=== PATIENT | female | born 1985 | race African-American/Black ===

== ENCOUNTER → 2019-11-27 10:58 | Outpatient (CLI) | payer OTHER, SELFPAY ==
--- NOTE | ~2019-11-27 | US_ITS ---
EXAMINATION: US right upper quadrant EXAM DATE: 11/27/2019 11:20 INDICATION: Abdominal pain, generalized, vomiting, diarrhea. TECHNIQUE: Multiple grayscale and Doppler images of the abdomen right upper quadrant were obtained (b y a technologist who performed the scan) and subsequently reviewed. There is no prior study for shyam muniz. FINDINGS: The pancreatic head and body are normal in appearance. The pancreatic tail is not visualized. The l iver has normal echogenicity and contour. There are no focal liver lesions identified. There is no evidence of intrahepatic biliary duct dilation. Portal venous flow was seen in the hepatopedal, nor mal direction and has normal Doppler waveform. No right-sided hydronephrosis. Common bile duct measures 4 mm, which is normal. The gallbladder wall is normal in thickness, with ex pected amount of distention. No sonographic evidence of pericholecystic fluid. There is no cholelit hiases. Technologist performing exam reports patient did not demonstrate sonographic Dietz's sign. Please note that this sign is less reliable in patients who have received pain medication. IMPRESSION: 1. Unremarkable abdominal ultrasound exam. Reviewed, dictated and finalized at location B. 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
== END ==
PROVIDERS: PCP Physician Assistant; Visit Provider Physician Assistant
DX: R10.84 Generalized abdominal pain (principal)
CPT/HCPCS: 76705

== ENCOUNTER 2022-03-31 13:34 | Outpatient (CLI) | payer OTHER, SELFPAY ==
[2022-03-31 13:55] LABS: Basophils Percent Auto 0.2 % (0.2-1.2); Eosinophils Absolute Auto 0.3 K/mm3 (0-0.3); Hematocrit 41.1 % (37.0-47.0); Immature Granulocyte Absolute 0.04 K/mm3 (0.00-0.031); Immature Granulocyte Percent A 0.3 % (0-0.5); Immature Platelet Fraction Pct 7.5 % (0.9-11.2); Lymphocytes Absolute Auto 4.09 K/mm3 (0.9-3.2); Lymphocytes Percent Auto 32.3 % (18.3-44.2); Mean Corpuscular HGB Conc 31.6 g/dl (32-36); Mean Corpuscular Hemoglobin 26.6 pg (26-34); Mean Corpuscular Volume 84.2 fl (80-100); Mean Platelet Volume 13.4 fl (7.4-10.4); Monocytes Absolute Auto 0.7 K/mm3 (0.1-0.6); Monocytes Percent Auto 5.1 % (2.6-8.5); Neutrophils Absolute Auto 7.6 K/mm3 (1.3-6.7); Neutrophils Percent Auto 60.1 % (45.5-73.1); Platelet Count Result 277 k/mm3 (150-375); Red Blood Count 4.88 M/mm3 (4.2-5.4); Red Cell Distribution Width 13.6 % (11.5-14.5); White Blood Count 12.7 K/mm3 (4.5-10.0)
== END 2022-03-31 13:35 | disposition home or self-care (01) ==
LOC: ANHLAB 13:37
PROVIDERS: PCP Physician Assistant; Visit Provider Obstetrics & Gynecology
DX: Z01.818 Encounter for other preprocedural examination (principal); N92.6 Irregular menstruation, unspecified
CPT/HCPCS: 36415; 85025; 85055; 86850; 86900; 86901

== ENCOUNTER 2022-04-07 00:20 | Day surgery (SDC) | payer OTHER, SELFPAY ==
[2022-03-30 16:35] VITALS: BMI 39.7
--- NOTE | 2022-03-31 12:25 | PC.NURSE ---
Report to the Outpatient Waiting Room, entrance under the green pavilion located off [facility], at time 0730 on date 04/07/22. OR Time: 0930_. - You and your visitor will be asked a series of questions to screen for COVID 19 for your protection. - Only one visitor is allowed at this time. - The patient visitor is requested to leave or wait in car when not with patient. - A mask is required within the hospital. Patients may have clear liquids (water, carbonated beverages, clear teas, apple juice) until 3 hours prior to surgery with a maximum of 20 ounces. - No food from midnight until time of surgery - Infants may have breast milk until 4 hours before surgery, formula 6 hours prior to surgery. - Children will be allowed to drink immediately following surgery. If applicable, please bring a bottle or sippy cup to assist with drinking. Juice, water, soda, and popsicles are readily available. For infants on formula, please bring formula the day of surgery. Pacifiers are allowed. Take the following medications with a SIP of water the morning of surgery: clonazepam Medications to discontinue per physician Date to take last dose Please no make-up, nail palauan, hairspray, perfume, deodorant, or body powder the day of surgery. No jewelry (including any body piercings) or valuables the day of surgery, leave them at home. Please take a shower or bath the night before, or the morning of, surgery with an antibacterial soap. Wear comfortable, loose fitting clothing. Children are encouraged to wear pajamas. - Jewelry must be removed prior to entering the operating room. Rings and piercings that are not removed may be cut off. - The hospital will not accept responsibility for valuables. - Please leave all valuables, including medications, at home the day of surgery. If you are going home after surgery, a licensed inventory associate and driver must drive you home. - NO public transportation without another adult. - We recommend that an adult stay with you for 24 hours following discharge. - We also recommend that you do not drive, make important decision, drink alcoholic beverages, or take any drugs that were not prescribed by your health care provider for at least 24 hours after your discharge time. For Pediatric surgeries, we recommend two adults accompany the child home (only one inside the building at this time). Follow any additional instructions given to you from your surgeon. If you or anyone in your household have experienced Covid symptoms in the past week, please notify your surgeon or the nurse liaison at the phone number below for possible testing. Telephone instructions given to Liudmila Ceja and asked if any additional questions and then verbalized understanding. Patient advised to call surgeon office or pre surgery nurse liaison [phone] if any additional questions.
--- NOTE | 2022-04-05 07:52 | PM.IMHP ---
H&P: HPI History of Present Illness Date/Time: 04/05/22 07:52 Chief Complaint: Pelvic pain and vaginal bleeding with uterine fibroids on imaging Narrative: This is a 36-year-old female with severe pelvic pain she had an ultrasound which showed multiple uterine fibroids. She complains of pain discomfort and bleeding that is is for definitive therapy. She understands this null over to have children. She received the [employer] handout entitled hysterectomy as well as the de Gali handout. She had all questions answered and asked to proceed PMFSH Social History Social History Smoking packs per day: 0.75 Smoking cigarettes per day: 15.0 Years smoked: 15 Smoking pack-years: 11.25 Smoking status: Current every day smoker Tobacco type: cigarettes Alcohol intake: never Substance use: never Spiritual care concerns: No Meds Home Medications and Allergies Home Medications Medication Instructions Recorded Confirmed Type clonazepam 1 mg tablet 1 mg PO DAILY 03/30/22 03/30/22 History lurasidone 80 mg tablet (Latuda) 80 mg PO HS 03/30/22 03/30/22 History sertraline 100 mg tablet 100 tablet PO HS 03/30/22 03/30/22 History Allergies Allergy/AdvReac Type Severity Reaction Status Date / Time Dog Dander Allergy Unknown Sneezing Uncoded 03/30/22 16:31 Grass Allergy Unknown Sneezing Uncoded 03/30/22 16:31 Exam : External Female Exam: normal external appearance Speculum Exam - Vagina: normal appearance of the vagina Speculum Exam - Cervix: normal appearance of the cervix and Cervical os closed Bimanual exam- vagina & uterus: enlarged and Uterine tenderness Bimanual Exam- Adnexa, other: normal adnexae Assessment and Plan Assessment and plan (1) Enlarged uterus: Code(s): N85.2 - Hypertrophy of uterus Status: Acute (2) Pelvic pain: Code(s): R10.2 - Pelvic and perineal pain Status: Acute (3) Uterine fibroid: Code(s): D25.9 - Leiomyoma of uterus, unspecified Status: Acute Plan Robotic total vaginal hysterectomy and bilateral salpingectomy
--- NOTE | 2022-04-06 12:24 | WPDANESEPPF ---
Anes - Initial Pre Proc Eval Procedure: Operation Date: 04/07/22 09:30 Proposed Procedures p Robotic Assisted Total Vaginal Hysterectomy with Bilateral Salpingectomy - Madhu Muñoz MD Date/Time: 04/06/22 12:24 Surgeon: Madhu Muñoz MD Pre Op Diagnosis: pelvic pain, enlarged uterus, firboid, irreg bleed Patient Data Age: 36 Gender: F Height: 1.63 m Weight: 105 kg Allergies Allergy/AdvReac Type Severity Reaction Status Date / Time No Known Allergies Allergy Verified 04/07/22 08:23 Home Medications Medication Instructions Recorded Confirmed Type clonazepam 1 mg tablet 1 mg PO DAILY 03/30/22 04/07/22 History lurasidone 80 mg tablet (Latuda) 80 mg PO HS 03/30/22 04/07/22 History sertraline 100 mg tablet 100 tablet PO HS 03/30/22 04/07/22 History hydrocodone 5 mg-acetaminophen 325 1 tablet PO Q4H PRN pain #30 tabs 04/07/22 Rx mg tablet Patient hx anesthesia problems: none Family hx anesthesia problems: none Results Review: All pre-operative results and documents have been reviewed as part of the pre-operative evaluation. [facility] Past Medical History Medical History (Updated 04/07/22 @ 07:16 by Madhu Muñoz MD) Enlarged uterus Obesity Pelvic pain Uterine fibroid Social History Social History Smoking packs per day: 0.75 Smoking cigarettes per day: 15.0 Years smoked: 15 Smoking pack-years: 11.25 Smoking status: Current every day smoker Tobacco type: cigarettes Alcohol intake: never Substance use: never Living arrangements: with friend(s) Spiritual care concerns: No Anes - Eval Final PreProcedure Day of Procedure 04/06/22 12:24 Patient weight: obese Heart: regular rate and rhythm Lungs: clear to auscultation and normal air movement Airway: Mallampati scale class II Neurological: alert and oriented Last oral intake: >/= 8 hours ASA classification: III Emergent: no Anesthetic plan: proceed Anesthesia type and monitoring: general ETT Results Review: All pre-operative results and documents have been reviewed as part of the pre-operative evaluation. Informed Consent: The patient's anesthetic plan and its attendant risks and benefits were discussed with the patient/family/POA. Questions were solicited and answers provided to the satisfaction of the patient/family/POA.
[2022-04-07] VITALS (10 sets, daily range): BP systolic 105–126; BP diastolic 55–98; PULSE 57–87; RESP 12–20; TEMP 36.1–36.8; O2SAT 97–100
--- NOTE | 2022-04-07 07:15 | WPDHPUPDATE1 ---
History and Physical Update Update Date/Time: 04/07/22 07:15 History and Physical has been reviewed, including an updated exam of the patient. There are NO changes in the patient's condition. Risks, benefits, and alternatives have been discussed and questions answered. Patient agrees to proceed with procedure.
[2022-04-07] MEDS: ACETAMINOPHEN 500 MG TABLET 1000 MG PO (07:38)
[2022-04-07] MEDS: LACTATED RINGERS 1,000 ML 30 ML IV CONT ×2 (08:18→10:05)
[2022-04-07] MEDS: KETOROLAC 15 MG/ML VIAL (*BKC) IV PUSH (08:19)
[2022-04-07] MEDS: ceFAZolin 2 GM/D5W 50 ML 2 GM/50 ML BAG IVPB (08:58)
--- NOTE | 2022-04-07 09:52 | W.PM.PROC2 ---
Procedure Note - Detailed Date of Procedure 04/07/22 Pre-op Diagnosis pelvic pain, enlarged uterus, firboid, irreg bleed Post-op Diagnosis Same Procedure Performed Robotic total vaginal hysterectomy and bilateral salpingectomies Surgeon Madhu Muñoz MD Anesthesia General Indications This is a 36-year-old female with fibroid uterus and bleeding and pain refractory to medical therapy Findings Markedly enlarged fibroid at the fundus of the uterus. Normal-appearing ovaries and tubes Description of Procedure The patient was prepped draped in the normal sterile fashion placed in the dorsal lithotomy position. Under excellent general trach anesthesia weighted speculum placed in posterior fornix vagina. Anterior lip of the cervix grasped with a single-tooth tenaculum. The uterus sounded to 9cm. Serial dilatation with fragmented dilators performed followed by passage of the 8. VICKI and the 3. Cold cup. A 16 [place] catheter was placed in the bladder. The single-tooth was removed as was the weighted speculum and the gloves were changed. A supraumbilical incision made in the Veress needle passed in the abdomen. Abdomen filled with CO2 gas [id number]. The 8mm trocar advanced under direct visualization assuring no injury. Patient placed in Trendelenburg and right and left lateral quadrant incisions made. The 8mm trocars were advanced under direct visualization assuring no injury. A right upper quadrant incision made and the 8mm trocar advanced under direct visualization again assuring no injury. The robot was docked. Attention was turned to the console. The left round ligament was grasped, burned, cut. Anteriorly a bladder flap was formed by sharply dissecting the peritoneum and reflecting the bladder caudally to the opposite round round ligament which was clamped, burned, cut. A large fibroid was noted at the fundus. The left fallopian tube was then sharply dissected using monopolar cautery and left attached to the uterine origin a talbert. The right fallopian tube was removed from the ovary in like fashion and left attached to its origination at the uterus. The left utero-ovarian ligament was clamped, burned, cut conserving the left ovary. The right utero-ovarian ligament was clamped, burned, cut and brought to the level of previously cut round ligament conserving the right ovary. The left cardinal and broad ligaments were then serially skeletonized gently hugging this cervix and uterus on the way down to the uterine vessels clamping cutting burning until uterine vessels could be seen. These were large and tortuous in each was individually clamped, burned, cut. In like fashion the cardinal broad ligaments on the right were serially skeletonized. They were clamped, burned, cut hugging the cervix and uterus until the vessels could be seen on the right. These were individually clamped, burned, cut. At that point excellent blanching the uterus was seen a colpotomy incision was made in the cervix uterus and tubes removed through the vagina. The vagina was closed with continuous running 0V lock from lateral edge to lateral edge back to the midline. Irrigation undertaken until clear and blood loss estimated 25cc. All sponge, needle, instrument counts were correct. There were no immediate complications present. The robot was undocked. The gas removed from the abdomen after the trocars removed and the incisions closed with 4 Monocryl and glue Estimated Blood Loss 25 Drains No Packing No Pathology Yes Complications No immediate complications Condition Stable Disposition PACU
[2022-04-07] MEDS: fentaNYL CITRATE INJ (*CRX) 100 MCG/2 ML VIAL 25 MCG IV PUSH ×8 (10:18→11:19)
--- NOTE | 2022-04-07 11:45 | ADMGEN ---
This patient, Liudmila Ceja, was admitted to OB 2nd Floor Room 279-00. Patient/family oriented to hospital policies and general routines including ID bracelet, bed and alarms, visiting hours, pain management, procedures, bathroom and other care routines, personal items, smoking policy, room service/diet, and visiting hours. Information on how to activate the Rapid Response Team has been discussed. Patient/Family are encouraged to report perceived risks to care and to ask questions if they do not understand what they are told or what they should do.
[2022-04-07] MEDS: DEXTROSE 5%/LACTATED RINGERS 1,000 ML 125 ML IV CONT (12:01)
[2022-04-07] MEDS: KETOROLAC 30 MG/ML VIAL (*BKC) IV PUSH (12:36)
[2022-04-07] MEDS: MORPHINE SULFATE (*CRX) 2 MG/ML INJ IV PUSH (12:40)
[2022-04-07] MEDS: HYDROcodone/acetaminophen (*CRX) 10-325 MG TABLET 1 TAB PO ×3 (14:02→20:06)
[2022-04-07] MEDS: SIMETHICONE 80 MG TAB.CHEW PO ×3 (14:02→20:06)
[2022-04-07] MEDS: DOCUSATE SODIUM 100 MG CAPSULE PO (17:02)
[2022-04-07] MEDS: NICOTINE (*PBKC) 14 MG PATCH 1 PATCH TRANSDERM (20:06)
[2022-04-07] MEDS: IBUPROFEN 600 MG TABLET PO (20:06)
[2022-04-08] MEDS: HYDROcodone/acetaminophen (*CRX) 10-325 MG TABLET 1 TAB PO ×2 (01:05→05:02)
[2022-04-08] MEDS: SIMETHICONE 80 MG TAB.CHEW PO ×2 (01:05→05:02)
[2022-04-08 04:20] VITALS: BP 96/49; PULSE 72; RESP 16; TEMP 36.4
[2022-04-08] MEDS: IBUPROFEN 600 MG TABLET PO (05:02)
[2022-04-08 05:14] LABS: Basophils Percent Auto 0.2 % (0.2-1.2); Eosinophils Percent Auto 0.2 % (0-4.4); Hematocrit 36.9 % (37.0-47.0); Immature Granulocyte Absolute 0.11 K/mm3 (0.00-0.031); Immature Granulocyte Percent A 0.5 % (0-0.5); Lymphocytes Absolute Auto 2.93 K/mm3 (0.9-3.2); Lymphocytes Percent Auto 13.9 % (18.3-44.2); Mean Corpuscular HGB Conc 32.5 g/dl (32-36); Mean Corpuscular Hemoglobin 27.1 pg (26-34); Mean Corpuscular Volume 83.3 fl (80-100); Mean Platelet Volume 12.6 fl (7.4-10.4); Monocytes Absolute Auto 0.9 K/mm3 (0.1-0.6); Monocytes Percent Auto 4.1 % (2.6-8.5); Neutrophils Percent Auto 81.1 % (45.5-73.1); Platelet Count Result 267 k/mm3 (150-375); Red Blood Count 4.43 M/mm3 (4.2-5.4); Red Cell Distribution Width 13.4 % (11.5-14.5)
[2022-04-08] MEDS: ENOXAPARIN 40 MG/0.4 ML SYRINGE SUB-Q (07:37)
[2022-04-08] MEDS: DOCUSATE SODIUM 100 MG CAPSULE PO (07:37)
--- NOTE | 2022-04-08 07:37 | PM.GYNPNOP ---
[employer] - A/P Assessment and plan (1) Enlarged uterus: Code(s): N85.2 - Hypertrophy of uterus Status: Acute Assessment and Plan: A: POD#1 s/p robotic assisted TVHBS, doing well. P: Home to f/u 2 weeks. (2) Pelvic pain: Code(s): R10.2 - Pelvic and perineal pain Status: Acute (3) Uterine fibroid: Code(s): D25.9 - Leiomyoma of uterus, unspecified Status: Acute Postoperative Procedures: Procedures Operation Date: 04/07/22 09:30 Actual Procedure Side Surgeon p Robotic Assisted Total Vaginal Hysterectomy with Bilateral Salpingectomy Bilateral Madhu Muñoz MD Time Spent With Patient Time with patient: less than 15 minutes [employer]- PN:Subj Post-Op Subjective Date/time seen: 04/08/22 07:37 Interval history: Pain OK. Tolerating diet. Voiding. Would like to go home. Exam Narrative: AVSS I/O OK ABD soft, nontender. Incisions c/d/i. EXT nontender [employer] - PN: Obj Data Vital Signs Vital Signs: Vital Signs - 24 hr 04/07/22 08:21 04/07/22 10:05 04/07/22 10:20 Temperature 36.8 C 36.2 C L Pulse Rate 87 84 60 Respiratory Rate 16 16 14 Blood Pressure 126/84 126/98 H 119/59 L Pulse Oximetry 99 100 100 Oxygen Delivery Room Air Non-Rebreather Mask Non-Rebreather Mask Oxygen Flow Rate 6 6 04/07/22 10:35 04/07/22 10:50 04/07/22 11:05 Temperature Pulse Rate 66 60 57 L Respiratory Rate 20 14 12 Blood Pressure 107/60 105/59 L 109/67 Pulse Oximetry 100 100 97 Oxygen Delivery Room Air Room Air Room Air Oxygen Flow Rate 04/07/22 11:35 04/07/22 12:00 04/07/22 11:50 Temperature 36.1 C L Pulse Rate 60 57 L Respiratory Rate 16 18 Blood Pressure 115/55 L 109/57 L Pulse Oximetry 100 100 Oxygen Delivery Room Air Room Air Oxygen Flow Rate 04/07/22 16:00 04/07/22 16:00 04/07/22 19:50 Temperature 36.3 C L 36.2 C L Pulse Rate 60 78 Respiratory Rate 16 16 Blood Pressure 107/66 111/56 L Pulse Oximetry 100 Oxygen Delivery Room Air Oxygen Flow Rate 04/08/22 04:20 Temperature 36.4 C L Pulse Rate 72 Respiratory Rate 16 Blood Pressure 96/49 L Pulse Oximetry Oxygen Delivery Oxygen Flow Rate Intake/Output Intake/Output: Intake & Output 04/05/22 04/06/22 04/07/22 04/08/22 23:59 23:59 23:59 23:59 Intake Total 2450 Output Total 1900 Balance 550 Meds/Results Medications: Active Medications Generic Name Dose Route Start Last Admin Trade Name Freq PRN Reason Stop Dose Admin Hydrocodone Bitart/Acetaminophen 1 tab 04/07/22 11:44 Hydrocodone/Acetaminophen (*Crx) 5-325 Mg Tablet PO Q3H PRN Pain Rated 5 or Less Hydrocodone Bitart/Acetaminophen 1 tab 04/07/22 11:44 04/08/22 05:02 Hydrocodone/Acetaminophen (*Crx) 10-325 Mg Tablet PO 1 tab Q3H PRN Administration Pain Rated 6 or Greater Docusate Sodium 100 mg 04/07/22 17:00 04/07/22 17:02 Docusate Sodium 100 Mg Capsule PO 100 mg BID [facility] Administration Enoxaparin Sodium 40 mg 04/08/22 09:00 Enoxaparin 40 Mg/0.4 Ml Syringe SUB-Q DAILY [facility] Ibuprofen 600 mg 04/07/22 11:44 04/08/22 05:02 Ibuprofen 600 Mg Tablet PO 600 mg Q6H PRN Administration Cramping Nicotine 1 patch 04/08/22 09:00 04/07/22 20:06 Nicotine (*Pbkc) 14 Mg Patch TRANSDERM 1 patch QAM IRMA Administration Simethicone 80 mg 04/07/22 11:44 04/08/22 05:02 Simethicone 80 Mg Tab.Chew PO 80 mg Q2H PRN Administration Gas Labs CBC & Chem 7: 04/08/22 04:50 Labs: Laboratory Results - last 24 hr 04/08/22 04:50 WBC 21.0 H RBC 4.43 Hgb 12.0 Hct 36.9 L MCV 83.3 MCH 27.1 MCHC 32.5 RDW 13.4 Plt Count 267 MPV 12.6 H Immature Gran % (Auto) 0.5 Neut % (Auto) 81.1 H Lymph % (Auto) 13.9 L [place] % (Auto) 4.1 Eos % (Auto) 0.2 Baso % (Auto) 0.2 Lymph # (Auto) 2.93 [place] # (Auto) 0.9 H Eos # (Auto) 0.0 Baso # (Auto) 0.0 Abs Immat Gran (auto) 0.11 H Absolute Ne
[2022-04-08 07:55] VITALS: BP 114/65; PULSE 66; TEMP 36.8
== END 2022-04-08 09:00 | disposition home or self-care (01) ==
LOC: ANHSURGERY 07:30 → ANHOB2 11:45
PROVIDERS: PCP Physician Assistant; Visit Provider Obstetrics & Gynecology
PROC: (CPT 58552; principal; 2022-04-07 09:30)
DX: R10.2 Pelvic and perineal pain (principal); D25.9 Leiomyoma of uterus, unspecified; N85.2 Hypertrophy of uterus; F17.210 Nicotine dependence, cigarettes, uncomplicated; E66.9 Obesity, unspecified; Z68.38 Body mass index [BMI] 38.0-38.9, adult
CPT/HCPCS: 58552; S2900; 36415; 85025; 85055; 86850; 86900; 86901; 88307; 99199; A9270; J0690; J1100; J1170; J1650; J1885; J2250; J2270; J2405; J2704; J3010; J7030; J7120; J7121

== ENCOUNTER 2022-04-08 15:01 | Emergency (ER) | payer OTHER, SELFPAY ==
[2022-04-08 15:05] VITALS: BP 129/62; PULSE 85; RESP 16; TEMP 36.5; O2SAT 100
[2022-04-08 15:12] VITALS: RESP 18; O2SAT 98
--- NOTE | 2022-04-08 15:19 | ED.GENADULT ---
HPI - General Adult General Chief complaint: Recheck/Abnormal Lab/Rx Stated complaint: elevated wbc count Time Seen by Provider: 04/08/22 15:10 History of Present Illness HPI narrative: Patient is a 36-year-old female with a history of recent hysterectomy here for evaluation of elevated white blood cell count. Patient had a hysterectomy for fibroids yesterday by Dr. Valentin Muñoz, tolerated the procedure well, and was discharged home today. Patient states she received a call from her PCP when she got home stating that she needed to come back to the emergency department due to an abnormal lab. Upon chart review, patient's white blood cell count was 21 this morning. Patient is having some pain in her lower abdomen which she describes as a cramp, but this has been well controlled by [place], last taken 5 hours ago. Additionally reporting lightheadedness today. Denies dysuria, hematuria, reported fevers. Related Data Home Medications Medication Instructions Recorded Confirmed clonazepam 1 mg tablet 1 mg PO DAILY 03/30/22 04/07/22 lurasidone 80 mg tablet (Latuda) 80 mg PO HS 03/30/22 04/07/22 sertraline 100 mg tablet 100 tablet PO HS 03/30/22 04/07/22 Allergies Allergy/AdvReac Type Severity Reaction Status Date / Time No Known Allergies Allergy Verified 04/08/22 15:08 Review of Systems Review of Systems: Gen: Reports lightheadedness. Denies fevers or chills Eyes: Denies eye pain or visual change ENT: Denies congestion Respiratory: Denies shortness of breath or cough CV: Denies chest pain or palpitations GI: Reports abdominal pain. Denies nausea, emesis or diarrhea : denies burning, urgency, frequency or hematuria Musculoskeletal: Denies back pain or muscle pain Neuro: Denies numbness, tingling, weakness or focal weakness Skin: Denies rash Except as documented, all other systems reviewed and negative [facility] Past Medical History Medical History Enlarged uterus Obesity Pelvic pain Uterine fibroid Social History Social History Smoking packs per day: 0.75 Smoking cigarettes per day: 15.0 Years smoked: 15 Smoking pack-years: 11.25 Smoking status: Current every day smoker Tobacco type: cigarettes Alcohol intake: never Substance use: never Spiritual care concerns: No Exam Narrative: APPEARANCE: Well appearing, no pain in distress, well-nourished. Head: normocephalic and atraumatic. EYES: PERRLA/EOMI, conjunctivae clear NOSE: No nasal drainage EARS: External ear normal in appearance THROAT: Oropharynx is clear. Mucous membranes are moist. NECK: Supple. No adenopathy, no masses. RESPIRATORY: Airway patent, respirations nonlabored. Clear to auscultation bilaterally, no rales, rhonchi, wheezing. CARDIOVASCULAR: Regular rate and rhythm without murmurs, rubs, or gallops. ABDOMINAL: Tender to palpation over suprapubic region. Normoactive bowel sounds. Soft, nontender, nondistended. No rebound tenderness or guarding. MUSCULOSKELETAL: Extremities are warm and well-perfused. Moves all extremities well. No edema. NEURO: Normal speech. No focal neurologic deficits. SKIN: Laparoscopic surgical sites well-healing. Skin is warm and dry. No rashes. PSYCHIATRIC: Normal affect/mood. Course Course Emergency Course: Discussed case with Dr. Carpenter, who agrees with plan for outpatient management. Vital Signs Vital signs: Vital Signs Temperature 97.7 F 04/08/22 15:05 Pulse Rate 85 04/08/22 15:05 Respiratory Rate 16 04/08/22 15:05 Blood Pressure 129/62 04/08/22 15:05 Pulse Oximetry 100 04/08/22 15:05 Oxygen Delivery Room Air 04/08/22 15:05 Temperature 97.7 F 04/08/22 15:05 Pulse Rate 65 04/08/22 16:57 Respiratory Rate 18 04/08/22 16:57 Blood Pressure 108/76 04/08/22 16:57 Pulse Oximetry 99 04/08/22 16:57 Oxygen Delivery Room Air 04/08/22 15:05
[2022-04-08] MEDS: HYDROcodone/acetaminophen (*CRX) 5-325 MG TABLET 1 TAB PO (15:21)
[2022-04-08 15:38] LABS: Basophils Percent Auto 0.2 % (0.2-1.2); Eosinophils Absolute Auto 0.1 K/mm3 (0-0.3); Eosinophils Percent Auto 0.8 % (0-4.4); Hematocrit 36.3 % (37.0-47.0); Hemoglobin 11.4 g/dL (12.0-15.0); Immature Granulocyte Absolute 0.05 K/mm3 (0.00-0.031); Immature Granulocyte Percent A 0.3 % (0-0.5); Lymphocytes Absolute Auto 5.29 K/mm3 (0.9-3.2); Lymphocytes Percent Auto 33.2 % (18.3-44.2); Mean Corpuscular HGB Conc 31.4 g/dl (32-36); Mean Corpuscular Hemoglobin 26.7 pg (26-34); Mean Platelet Volume 12.7 fl (7.4-10.4); Neutrophils Absolute Auto 9.5 K/mm3 (1.3-6.7); Neutrophils Percent Auto 59.5 % (45.5-73.1); Platelet Count Result 234 k/mm3 (150-375); Red Blood Count 4.27 M/mm3 (4.2-5.4); White Blood Count 15.9 K/mm3 (4.5-10.0)
[2022-04-08 15:49] LABS: Alanine Aminotransferase 11 U/L (6-35); Albumin Level 3.3 g/dL (3.5-5.1); Alkaline Phosphatase 50 U/L (38-126); Anion Gap 3 mmol/L (8-16); Aspartate Amino Transferase 20 U/L (14-36); Bilirubin,Total 0.2 mg/dL (0.2-1.3); Blood Urea Nitrogen 12 mg/dL (7-17); Calcium 7.8 mg/dL (8.4-10.2); Carbon Dioxide 26 mmol/L (22-30); Chloride 107 mmol/L (98-107); Estimated CRCL calculation 102 ml/min; Estimated Glomerular Filt Rate > 60; Glucose 102 mg/dL (65-110); Potassium 3.6 mmol/L (3.4-5.0); Sodium 136 mmol/L (137-145)
[2022-04-08 16:16] LABS: Appearance Urine Clear (Clear); Bilirubin Urine Negative (Negative); Blood Urine 2+ (Negative); Color Urine Yellow (Yellow); Glucose Urine UA Negative (Negative); Ketones Urine Negative (Negative); Leukocyte Esterase Ur Trace LEU/UL (Negative); Nitrate Urine Negative (Negative); Protein Urine Negative (Negative); Urobilinogen Urine 0.2 mg/dL (<2.0); pH Urine 6.5 (5.0-9.0)
[2022-04-08 16:21] LABS: Bacteria Urine Trace /hpf; Mucus Urine Rare /lpf; Squamous Epithelial Cell Urine Few /hpf (Few); WBC Urine 0-3 /hpf
[2022-04-08 16:24] LABS: Add Urine Microscopic? YES
[2022-04-08 16:57] VITALS: BP 108/76; PULSE 65; RESP 18; O2SAT 99
[2022-04-08] MEDS: IBUPROFEN 400 MG TABLET 800 MG PO (17:00)
== END 2022-04-08 17:58 | disposition home or self-care (01) ==
PROVIDERS: Physician Assistant; Emergency Provider Emergency Medicine; PCP Physician Assistant
DX: G89.18 Other acute postprocedural pain (principal); E66.9 Obesity, unspecified; Z68.41 Body mass index [BMI] 40.0-44.9, adult; F17.210 Nicotine dependence, cigarettes, uncomplicated; Z90.710 Acquired absence of both cervix and uterus
CPT/HCPCS: 36415; 80053; 81001; 83605; 85025; 99283; A9270